=== PATIENT | female | born 1980 | race Two or more races ===

== ENCOUNTER 2018-09-20 08:19 | Outpatient (CLI) | payer OTHER ==
[2018-09-20 08:50] LABS: BASOPHILS % (AUTO) 0.6 %; EOSINOPHILS # (AUTO) 0.1 10^3/uL (0.0-0.7); EOSINOPHILS % (AUTO) 1.8 %; HGB - HEMOGLOBIN 9.3 g/dL (12.0-16.0); LYMPHOCYTES # (AUTO) 1.4 10^3/uL (1.5-3.5); LYMPHOCYTES % (AUTO) 26.5 %; MEAN CORPUSCULAR HGB CONC 28.9 g/dL (32.0-36.0); MEAN CORPUSCULAR VOLUME 79.5 fL (81.0-99.0); MEAN PLATELET VOLUME 10.4 fL (7.9-10.8); MONOCYTES # (AUTO) 0.4 10^3/uL (0.0-1.0); MONOCYTES % (AUTO) 7.7 %; NEUTROPHILS # (AUTO) 3.4 10^3/uL (1.5-6.6); NEUTROPHILS % (AUTO) 63.2 %; PLT - PLATELET COUNT 192 10^3/uL (130-450); RED BLOOD COUNT 4.05 10^6/uL (4.20-5.40); RED CELL DISTRIBUTION WIDTH 15.9 % (12.0-15.0); WHITE BLOOD COUNT 5.4 x10^3/uL (4.8-10.8)
[2018-09-20 09:01] LABS: CALCIUM 8.9 mg/dL (8.5-10.3); CREATININE 0.9 mg/dL (0.4-1.0)
[2018-09-20 09:27] LABS: HCG UR QUAL NEGATIVE
== END 2018-09-20 08:20 | disposition home or self-care (01) ==
LOC: LAB 08:19
PROVIDERS: ATTEND Obstetrics & Gynecology
DX: Z01.812 Encounter for preprocedural laboratory examination (principal); D25.9 Leiomyoma of uterus, unspecified
CPT/HCPCS: 36415; 80048; 81025; 85025; 86850; 86900; 86901

== ENCOUNTER 2018-09-23 06:01 | Inpatient (IN) | payer OTHER ==
[2018-09-23] MEDS ORDERED: CEFAZOLIN SODIUM IN 0.9 % NACL 2 GM/100 ML BAG IV ONE ×2 (06:37→09:00)
--- NOTE | 2018-09-23 07:06 | ANESTHESIA ---
Pre-Anesthesia VS, & Labs - Diagnosis uterine fibroids - Procedure uterine myomectomy Vital Signs: Temp Pulse Resp BP Pulse Ox 36.4 C L 91 16 141/86 H 100 09/23/18 06:45 09/23/18 06:45 09/23/18 06:45 09/23/18 06:45 09/23/18 06:45 Height 5 ft 6 in Weight (kg) 69.3 kg - NPO >8 hours - Is Patient ?: No - Lab Results Lab results reviewed: Yes Home Medications and Allergies Home Medications: Ambulatory Orders No Known Home Medications 09/16/18 No Known Home Medications 09/16/18 Allergies/Adverse Reactions: Allergies Allergy/AdvReac Type Severity Reaction Status Date / Time pine needle Allergy Rash Uncoded 09/16/18 14:38 Anes History & Medical History - Anesthetic History Anesthesia Complications: reports: No previous complications Family history of Anesthesia Complications: Denies Family history of Malignant Hyperthermia: Denies - Medical History Cardiovascular: reports: None Pulmonary: reports: None Gastrointestinal: reports: None Urinary: reports: Other Musculoskeletal: reports: None Endocrine/Autoimmune: reports: None Skin: reports: None Exam General: Alert, Oriented x3, Cooperative, No acute distress Dental: WNL Mouth Openin Fingerbreadth Neck Mobility: Normal Mallampati classification: III Thyromental Distance: greater than 6 cm Respiratory: Lungs clear, Normal breath sounds, No respiratory distress, No accessory muscle use Cardiovascular: Regular rate, Normal S1, Normal S2, No murmurs Plan Anesthesia Type: General Consent for Procedure(s) Verified and Reviewed: No Code Status: Attempt Resuscitation ASA classification: 1-Healthy patient Is this case an emergency?: No
[2018-09-23] MEDS ORDERED: LACTATED RINGERS 1,000 ML IV ONE ×3 (07:07→11:10)
[2018-09-23] MEDS ORDERED: BUPIVACAINE 0.25%-EPI 1:200000 PF 30 ML VIAL ONE (07:24)
[2018-09-23] MEDS ORDERED: LIDOCAINE MPF 1%-EPI 1:200000 30 ML VIAL ONE (07:32)
[2018-09-23] MEDS ORDERED: SCOPOLAMINE PATCH TOP ONE (07:38)
[2018-09-23 08:01] LABS: HCG,QUALITATIVE BLOOD NEGATIVE
[2018-09-23] MEDS ORDERED: LIDOCAINE-MPF 2% 5 ML VIAL IM ONE (09:00)
[2018-09-23] MEDS ORDERED: DEXAMETHASONE 4 MG/ML VIAL IVP ONE (09:00)
[2018-09-23] MEDS ORDERED: ROCURONIUM 50 MG/5 ML VIAL IVP ONE (09:00)
[2018-09-23] MEDS ORDERED: ePHEDrine 50 MG/ML VIAL IVP ONE (09:00)
[2018-09-23] MEDS ORDERED: PROPOFOL 200 MG/20 ML VIAL IVP ONE (09:00)
[2018-09-23] MEDS ORDERED: ACETAMINOPHEN 1,000 MG/100 ML 100 ML IV ONE (09:00)
[2018-09-23] MEDS ORDERED: KETOROLAC 60 MG/2 ML VIAL IM ONE (09:00)
[2018-09-23] MEDS ORDERED: SUGAMMADEX 200 MG/2 ML VIAL IVP ONE ×2 (09:00→10:27)
[2018-09-23] MEDS ORDERED: ONDANSETRON 4 MG/2 ML VIAL IVP ONE (09:00)
[2018-09-23] MEDS ORDERED: fentaNYL 250 MCG/5 ML VIAL IVP ONE (09:00)
[2018-09-23] MEDS ORDERED: ONDANSETRON 4 MG/2 ML VIAL IVP PRN (10:50)
[2018-09-23] MEDS ORDERED: MORPHINE 10 MG/ML VIAL IVP PRN (10:50)
[2018-09-23] MEDS ORDERED: SIMETHICONE CHEW 80 MG TABLET PO PRN (10:50)
[2018-09-23] MEDS ORDERED: ACETAMINOPHEN 500 MG TABLET PO PRN (10:51)
--- NOTE | 2018-09-23 10:55 | OPERATIVE REPORT ---
Operative Report - General Admit Date: 09/23/18 Planned Procedure: Abdominal myomectomy Pre-Op Diagnosis: Uterine fibroids Procedure Performed: Abdominal myomectomy, fulguration of endometriosis Post Op Diagnosis: Uterine fibroids, endometriosis - Procedure Note Primary Surgeon: Dr. Merced Lund Secondary Surgeon: Dr. Adin Salazar Anesthesia Provider: Dr. Jasiel Blackmon Anesthesia Technique: General ET tube Pathology: Uterine fibroids IV Fluids (mL): 1,500 Estimated Blood Loss (mL): 700 Urine Output (mL): 75 Indications: The patient is a 37-year-old 0 female with painful, heavy menses and pelvic ultrasound showing multiple uterine fibroids, the largest measuring 6 to 7 cm. The management options for fibroids were discussed with the patient, and she desired surgical management in the form of a myomectomy. The risks, benefits, limitations, alternatives, and expectations of surgery were discussed. The consent was then reviewed and signed prior to the date of surgery. Findings: Exam under anesthesia: Uterus anteverted and enlarged to approximately 14 weeks size. A large dominant fibroid was palpable at the posterior left region of the uterus. Operative findings: The cervix was normal appearance. The uterus was enlarged with multiple fibroids, 12 of which were removed at the time of surgery. The largest measured approximately 7 cm in diameter and was positioned at the posterior left portion of the uterus. It was predominantly intramural. There were 3 other fundal intramural fibroids noted, measuring approximately 3 cm each, at the midline fundus and then one anterior and one posterior at the right fundus. Multiple other smaller fibroids were removed from the incisions. Smaller subserosal fibroids measured less than 1 cm and were left in situ. Powder burn endometriosis lesions were noted at the left utero-ovarian pedicle in the posterior right uterine serosa. These were fulgurated at the time of surgery. The ovaries and fallopian tubes were normal in appearance. All areas of dissection avoided the cornual regions of the tubes. The myomectomies were performed through two incisions - one vertical incision at the posterior left, just to the left of midline, measuring 10 cm in length; and one across the fundus (anterior-posterior) at the midline and measuring 10 cm in length. Complications: None - Other Other Information/Narrative: The patient was taken to the operating room, where general endotracheal anesthesia was administered without difficulty. She was then positioned in the low dorsal lithotomy position with her lower extremities in Yellow [place] stirrups. Exam under anesthesia was then performed with the findings as noted above. Vagina, perineum, and abdomen were then prepped and draped in a sterile fashion, and a hooper catheter was placed. Procedure Time-Out was then performed. A sterile bivalve speculum was then inserted into the vagina. A tenaculum was placed at the anterior lip of the cervix, then the cervix was serially dilated until a HUMI uterine manipulator could be gently advanced and the balloon inflated. The tenaculum and speculum were then removed from the vagina. A Pfannenstiel incision was made two fingerbreadths above the pubic symphysis, measuring 7-8 cm in length. Dissecting through the layers of the abdominal wall sharply with Bovie cautery, the rectus fascia was visualized then nicked at the midline with the Bovie. This incision was then extended bilaterally using B ovie. Any bleeding was controlled with cautery. The superior aspect of the rectus fascia was then grasped at the midline with 2 Estela clamps and tented up. The rectus muscle was then dissected off the rectus fascia using a combination of blunt and cautery dissection. This step was then performed at the inferior aspect of the rectus fascia. The rectus muscles were then at the midline using a push and spread technique with Em clamps. The peritoneum was then visualized and entered sharply using Metzenbaum scissors. This incision was then extended superiorly and inferiorly, taking care to avoid any injury to the bladder. The uterus was palpated, and attempted to deliver to the incision; however, the dominant fibroid was too large. The skin incision was extended to 10-12 cm, allowing the uterus to be exteriorized onto the abdomen. The uterine manipulator was able to aid in this step. The uterus was notable for multiple fibroids as above. Attention was first turned to removal of the dominant fibroid at the posterior left side of the uterus. Here, 1% lidocaine with epinephrine was injected subserosally. An incision was then made with Bovie cautery over the length of the uterine fibroid. The myometrium was then further dissected with the cautery until the fibroid was reached. The fibroid was then grasped with a penetrating towel clamp while the surrounding myometrial tissue was bluntly dissected off of the fibroid. The fibroid was then removed from the myometrium. It did not appear to penetrate into the endometrium. The deep myometrial tissue was then closed with 0 chromic in layers to achieve hemostasis. At the outer aspect of the myometrium 2-0 chromic was utilized to reapproximate the edges in a horizontal mattress fashion. The uterine serosa was then closed with a 3-0 chromic using a baseball stitch. Hemostasis appeared to have been achieved. Attention was then turned to the fundal aspect of the uterus for removal of 3 other 3 cm fibroids that were intramural and partially subserosal. Here, a 7 cm anterior to posterior incision was planned, bisecting the midline and avoiding the tubal ostia. 1% lidocaine with epinephrine was injected under the serosa. Then, the incision was made with a Bovie cautery. The middle left fundal fibroid was palpated through the myometrium, and the myometrium cauterized until the fibroid was reached and grasped with a penetrating towel clamp. With gentle traction the fibroid was removed while dissecting the myometrium off with blunt and cautery dissection. The posterior right fundal fibroid was palpable through the incision. Overlaying myometrium was dissected until the fibroid was reached. The fibroid was grasped with a penetrating towel clamp and with gentle traction applied removed from the surrounding myometrium. A few smaller fibroids were removed during this process as well. Attention was finally turned to the right anterior fundal fibroid, which was a bit anterior to the incision. The incision was then extended anteriorly b approximately 3 cm to allow dissection of the right fundal fibroid. Additional lidocaine was injected into the serosa first. Then the incision was extended using Bovie cautery. The surrounding myometrium was then cauterized and until the fibroid could be reached and grasped with a penetrating towel clamp. The fibroid was then removed with gentle traction and Bovie cautery. The deeper tissue layers of the myometrium were closed with a combination of pursestring sutures and [id number] sutures using 0 chromic to achieve hemostasis. The entire incision was then closed in layers with 0 chromic again to achieve hemostasis and reapproximation. The serosa was then closed with 3-0 chromic in a baseball stitch. Some residual bleeding at the middle aspect was controlled with a [id number] suture of 2-0 chromic. Some notable areas of endometriosis were cauterized with Bovie cautery during the dissection. Once the incisions appeared hemostatic the cul-de-sac was irrigated. Blood loss was determined based on suction canister contents as well as weight of lap sponges. Blood loss was approximately 700 mL for the case. Seprafilm was placed over both incisions then the uterus was carefully returned to the pelvis. The rectus muscle bellies and peritoneum were then reapproximated at the midline using a running, nonlocked suture of 0 Vicryl. Any residual bleeding was controlled with Bovie cautery. Lidocaine 1% with epinephrine was injected into the fascia for pain control, then the rectus fascia was closed with a running nonlocked suture of 0 Vicryl. The subcutaneous tissue was then copiously irrigated and reapproximated with 2-0 Vicryl in interrupted sutures. The skin was then closed with 4-0 Monocryl in a subcuticular fashion. Mastisol and steri-strips were applied, followed by a dressing. At this point, the procedure was deemed complete. The patient was then transferred to recovery in stable fashion. There were no complications. Sponge lap and needle count were correct x3.
[2018-09-23] MEDS: LACTATED RINGERS 1,000 ML IV SCH ×2 (11:51→21:22)
[2018-09-23] MEDS: KETOROLAC 30 MG/ML VIAL IVP SCH ×2 (12:19→19:08)
[2018-09-23] MEDS ORDERED: SODIUM CHLORIDE FLUSH 0.9% 10 ML SYRINGE ONE (12:25)
[2018-09-23] MEDS: SODIUM CHLORIDE FLUSH 0.9% 10 ML SYRINGE IVP SCH ×3 (12:56→17:20)
[2018-09-23] MEDS: oxyCODONE 5 MG TABLET PO PRN (15:04)
[2018-09-23] MEDS: DOCUSATE SODIUM 100 MG CAPSULE PO SCH ×2 (15:04→21:20)
[2018-09-23] MEDS ORDERED: METOCLOPRAMIDE 10 MG/2 ML VIAL IVP PRN (16:52)
[2018-09-24] MEDS: oxyCODONE 5 MG TABLET PO PRN ×2 (03:10→14:11)
[2018-09-24] MEDS: SODIUM CHLORIDE FLUSH 0.9% 10 ML SYRINGE IVP SCH ×2 (04:08→12:12)
[2018-09-24 05:09] LABS: BASOPHILS % (AUTO) 0.2 %; EOSINOPHILS % (AUTO) 0.3 %; LYMPHOCYTES # (AUTO) 1.6 10^3/uL (1.5-3.5); LYMPHOCYTES % (AUTO) 13.6 %; MEAN CORPUSCULAR HEMOGLOBIN 23.6 pg (27.0-31.0); MEAN CORPUSCULAR HGB CONC 29.8 g/dL (32.0-36.0); MEAN CORPUSCULAR VOLUME 79.3 fL (81.0-99.0); MEAN PLATELET VOLUME 10.8 fL (7.9-10.8); MONOCYTES # (AUTO) 1.1 10^3/uL (0.0-1.0); MONOCYTES % (AUTO) 9.9 %; NEUTROPHILS # (AUTO) 8.8 10^3/uL (1.5-6.6); NEUTROPHILS % (AUTO) 75.7 %; PLT - PLATELET COUNT 142 10^3/uL (130-450); RED BLOOD COUNT 2.71 10^6/uL (4.20-5.40); RED CELL DISTRIBUTION WIDTH 16.5 % (12.0-15.0); WHITE BLOOD COUNT 11.6 x10^3/uL (4.8-10.8)
[2018-09-24 05:17] LABS: HGB - HEMOGLOBIN 6.4 g/dL (12.0-16.0)
[2018-09-24] MEDS: KETOROLAC 30 MG/ML VIAL IVP SCH ×2 (05:56)
[2018-09-24 06:04] LABS: BASOPHILS % (AUTO) 0.2 %; EOSINOPHILS % (AUTO) 0.1 %; LYMPHOCYTES # (AUTO) 1.5 10^3/uL (1.5-3.5); LYMPHOCYTES % (AUTO) 13.4 %; MEAN CORPUSCULAR HEMOGLOBIN 22.9 pg (27.0-31.0); MEAN CORPUSCULAR HGB CONC 29.1 g/dL (32.0-36.0); MEAN CORPUSCULAR VOLUME 78.6 fL (81.0-99.0); MEAN PLATELET VOLUME 10.2 fL (7.9-10.8); MONOCYTES # (AUTO) 1.1 10^3/uL (0.0-1.0); MONOCYTES % (AUTO) 9.4 %; NEUTROPHILS # (AUTO) 8.6 10^3/uL (1.5-6.6); NEUTROPHILS % (AUTO) 76.5 %; PLT - PLATELET COUNT 149 10^3/uL (130-450); RED CELL DISTRIBUTION WIDTH 16.3 % (12.0-15.0); WHITE BLOOD COUNT 11.2 x10^3/uL (4.8-10.8)
[2018-09-24 06:09] LABS: HGB - HEMOGLOBIN 6.4 g/dL (12.0-16.0)
[2018-09-24] MEDS: LACTATED RINGERS 1,000 ML IV SCH (07:03)
[2018-09-24] MEDS: DOCUSATE SODIUM 100 MG CAPSULE PO SCH (08:22)
[2018-09-24 13:28] LABS: MEAN CORPUSCULAR HEMOGLOBIN 23.1 pg (27.0-31.0); MEAN CORPUSCULAR HGB CONC 28.9 g/dL (32.0-36.0); MEAN CORPUSCULAR VOLUME 79.7 fL (81.0-99.0); MEAN PLATELET VOLUME 11.2 fL (7.9-10.8); RED BLOOD COUNT 2.86 10^6/uL (4.20-5.40); RED CELL DISTRIBUTION WIDTH 16.4 % (12.0-15.0); WHITE BLOOD COUNT 11.3 x10^3/uL (4.8-10.8)
[2018-09-24 13:36] LABS: HGB - HEMOGLOBIN 6.6 g/dL (12.0-16.0)
--- NOTE | 2018-09-24 16:16 | DISCHARGE SUMMARY ---
"Discharge Summary Admit Date: 09/23/18 Discharge Date: 09/24/18 Discharging Provider: Dr. Merced Lund Code Status: Attempt Resuscitation Condition at Discharge: Good Discharge Disposition: 01 Home, Self Care - DIAGNOSES Admission Diagnoses: Symptomatic Fibroid Uterus Discharge Diagnoses with Status of Each Condition: 1. Symptomatic Fibroid Uterus now s/p abdominal myomectomy 2. Endometriosis 3. Anemia, due to intraoperative blood loss - HPI History of Present Illness: Please see admission H&P - CONSULTS | PROCEDURES Consultations: None Procedures: Abdominal Myomectomy, Fulguration of Endometriosis - HOSPITAL COURSE Hospital Course: The patient underwent an abdominal myomectomy and fulguration of endometriosis for management of heavy and painful menses. Intraoperative course was notable f or heavy blood loss from the fibroid dissection. EBL for surgery was 700 ml based on suction and weighing of lap sponges, while accounting for moisture within the lap sponges. The night of surgery, she had some nausea and vomiting that was well-managed with Zofran and Reglan. Pain was managed with Toradol, tylenol, and oxycodone. She also had a fascial lidocaine injection at the time of abdominal closure. On the morning of POD #1, her H/H was notably low at 6/22. Repeat confirmed this, and she was type and cross-matched 2 units in case of need for blood transfusion. She denied lightheadedness or dizziness at rest or with ambulation. She did note fatigue with exercise, however. Vital signs were normal, and pain was appropriate for postop. A repeat CBC 6 hrs later noted stable H/H. Abdominal exam and history were not suggestive of any ongoing, intra-peritoneal blood loss. The patient was counseled regarding anemia and pros/cons of blood transfusion. She declined blood transfusion unless absolutely necessary. She was otherwise meeting criteria for discharge, including ambulating, tolerating a regular diet, voiding, passing flatus, and controlling pain with oral pain meds. She desired discharge to home on POD #1 to allow better rest at home. - ALLERGIES Allergies/Adverse Reactions: Allergies Allergy/AdvReac Type Severity Reaction Status Date / Time pine nut Allergy Intermediate Rash Verified 09/23/18 11:32 - MEDICATIONS Home Medications: Ambulatory Orders Medication Instructions Recorded Confirmed No Known Home Medications 09/16/18 09/16/18 - PHYSICAL EXAM AT DISCHARGE General Appearance: positive: No acute distress Eyes Bilateral: positive: Other (Mildly pale conjunctivae) Neck: positive: Nml inspection Respiratory: positive: Chest non-tender, No respiratory distress, Breath sounds nml Cardiovascular: positive: Regular rate & rhythm, No murmur, No gallop Peripheral Pulses: positive: 2+ Abdomen: positive: Other (Mildly distended. Mild tenderness to palpation at and below the umbilicus. Mild guarding. Bowel sounds present.) Skin: positive: Pallor Extremities: positive: Non-tender, Nml appearance Neurologic/Psychiatric: positive: Oriented x3, Sensation nml, Mood/affect nml - LABS Result Diagrams: 09/24/18 13:15 - QUALITY (Female Hip Fx Only) Was patient sent home on osteoporosis medication?: No - FOLLOW UP Follow Up: [id number] with Dr. Lund as previously scheduled - TIME SPENT Time Spent in Discharge (Minutes): 20"
--- NOTE | 2018-09-24 16:27 | Discharge Plan ---
Discharge Plan Problem Reviewed?: Yes Disposition: Home, Self Care Condition: Good Diet: Regular Activity Restrictions: Light activity for 4 wks Shower Restrictions: Yes (Do not scrub over incision) Driving Restrictions: Yes (OK to drive once pain-free off narcotic pain meds) Weight Bearing: Full Weight Health Concerns: Anemia - start iron replacement at approximately 1 week postop Endometriosis - will discuss start of hormonal BC at postop visit Plan of Treatment: D/c to home Care Goals: Correction of anemia, management of menses/endometriosis Assessment: POD #1 s/p abdominal myomectomy and fulguration of endometriosis; anemia secondary to intraoperative blood loss - mildly symptomatic. No Smoking: If you smoke, Please STOP! Call for help.
[2018-09-24 16:57] VITALS: BP 115/68
== END 2018-09-24 18:15 | disposition home or self-care (01) | DRG 742 ==
LOC: MS2 06:01
PROVIDERS: ADMIT Obstetrics & Gynecology; ATTEND Obstetrics & Gynecology
PROC: 0UB90ZZ Excision of Uterus, Open Approach (ICD-10-PCS; principal; 2018-09-23 07:30)
DX: D25.1 Intramural leiomyoma of uterus (principal); D62 Acute posthemorrhagic anemia; D25.2 Subserosal leiomyoma of uterus; N92.0 Excessive and frequent menstruation with regular cycle; N94.6 Dysmenorrhea, unspecified; N80.3 Endometriosis of pelvic peritoneum
CPT/HCPCS: 36415; 84703; 85025; 85027; 86850; 86900; 86901; 86920; A9270; J0131; J0690; J2765; J3010; J3490; J7120; 81025

== ENCOUNTER 2020-05-14 12:58 | Outpatient (CLI) | payer OTHER ==
--- NOTE | 2020-05-17 12:55 | Mammography Report ---
BILATERAL DIGITAL SCREENING MAMMOGRAM 3D/2D: 05/14/2020 CLINICAL: Baseline exam. No prior exams were available for comparison. The tissue of both breasts is heterogeneously dense. T his may lower the sensitivity of mammography. There is a 1.6 cm oval equal density mass with a circumscribed margin in the right breast central to the nipple anterior depth. There is a 0.6 cm oval mass in the left breast at 8 o'clock anterior depth. Finding is best seen on tomography. No other significant masses or calcifications are seen in either breast. IMPRESSION: INCOMPLETE: NEEDS ADDITIONAL IMAGING EVALUATION The 1.6 cm oval equal density mass in the right breast central to the nipple anterior depth is indete rminate. The 0.6 cm oval mass in the left breast at 8 o'clock anterior depth is indeterminate. Additional views with possible ultrasound are recommended. This exam was interpreted at Station ID: [id number]. NOTE: For mammograms, a report in lay terms will be sent to the patient. Approximately 15% of breast malignancies will not be visualized mammographically. In the management of a palpable breast mass, a negative mammogram must not discourage biopsy of a clinically suspicious lesion. Electronically Signed By: Emir Hernández M.D. slc/:05/14/2020 17:35:22 ACR BI-RADS Category 0: Incomplete [id number] PARENCHYMAL PATTERN: (D) - The breast(s) demonstrate(s) heterogeneously dense fibroglandular parmonicay stephani. BI-RADS CATEGORY: (0) - 0 Mammo and [place] [id number] Immediate follow-up LATERALITY: (B)
== END 2020-05-14 12:59 | disposition home or self-care (01) ==
LOC: DI 12:58
PROVIDERS: ATTEND Family Medicine
DX: Z12.31 Encounter for screening mammogram for malignant neoplasm of breast (principal); R92.8 Other abnormal and inconclusive findings on diagnostic imaging of breast

== ENCOUNTER 2020-12-07 21:16 | Emergency (ER) | payer OTHER ==
--- NOTE | 2020-12-07 23:56 | ED Physician Documentation ---
PD HPI SKIN - Stated complaint Stated Complaint: RASH ON UPPER BODY - Chief complaint Chief Complaint: Allergic Rx - History obtained from History obtained from: Patient - History of Present Illness Timing - onset: Today Timing - duration: Hours (12) Timing - details: Gradual onset (awoke with some hives on back of neck and arms, which has spread to whole body through the day. Itchy. No noted swelling of lips nor tongue. Not lightheaded. No noted obvious trigger to start it. 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 : Other HEENT: None Psych: None Musculoskeletal: None Derm: None - Past Surgical History Past Surgical History: Yes - Present Medications Home Medications: Ambulatory Orders Medication Instructions Recorded Confirmed Cetirizine [ZyrTEC] 10 mg PO BID 7 Days #14 tablet 12/08/20 dexAMETHasone [Decadron] 4 mg PO DAILY #5 tablet 12/08/20 diphenhydrAMINE [Benadryl] 25 mg PO Q4-6H PRN #20 12/08/20 - Allergies Allergies/Adverse Reactions: Allergies Allergy/AdvReac Type Severity Reaction Status Date / Time pine nut Allergy Intermediate Rash Verified 12/07/20 21:19 - Social History Does the pt smoke?: No Smoking Status: Never smoker Does the pt have substance abuse?: No - Immunizations Immunizations are current?: Yes Results - Vitals Vitals: Oxygen O2 Source Room air PD MEDICAL DECISION MAKING - ED course Complexity details: considered differential (hives, but without identified trigger. Will treat with steroid/antihistamines. ), d/w patient Departure - Departure Disposition: 01 Home, Self Care Clinical Impression: Acute urticaria Condition: Stable Record reviewed to determine appropriate education?: Yes Instructions: ED Allergic Reaction General Other Follow-Up: AUSTIN DOW DO [Primary Care Provider] - Prescriptions: diphenhydrAMINE [Benadryl] 25 mg PO Q4-6H PRN #20 PRN Reason: Itching dexAMETHasone [Decadron] 4 mg PO DAILY #5 tablet Cetirizine [ZyrTEC] 10 mg PO BID 7 Days #14 tablet Comments: Use the steroid dexamethasone daily for 5 more days. Also cetirizine antihistamine twice daily for the next week. This tries to outlast whatever is causing the reaction and to end the reaction. Add diphenhydramine (Benadryl) every 6 hours if needed in the short-term for itchiness and hives. I would anticipate improvement over the next 2 to 3 days and resolution in that timeframe. Recheck if not better in that timeframe or if recurrent in the near future as this may suggest a need for other allergy testing or such. One consideration would be the naproxen you would used sort of recently. Do not use that for now and you could try it again in 2 weeks or so after your current hives are resolved. Try to just a couple of times and see if the itchiness recurs. If not, then I would say that that was on related. Discharge Date/Time: 12/08/20 00:47
[2020-12-08] MEDS ORDERED: CETIRIZINE 10 MG TABLET PO STA (00:07)
[2020-12-08] MEDS ORDERED: DEXAMETHASONE 10 MG/ML VIAL PO STA (00:07)
[2020-12-08] MEDS ORDERED: FAMOTIDINE 20 MG TABLET PO STA (00:07)
[2020-12-08] MEDS ORDERED: diphenhydrAMINE 25 MG CAPSULE PO STA (00:07)
[2020-12-08] MEDS ORDERED: CHERRY SYRUP 10 ML UDC PO ONE (00:07)
[2020-12-08 00:34] VITALS: BP 145/81
== END 2020-12-08 00:47 | disposition home or self-care (01) ==
LOC: ED 21:16
DX: L50.9 Urticaria, unspecified (principal)
CPT/HCPCS: 99282; 99283; A9270

== ENCOUNTER 2021-01-01 04:37 | Emergency (ER) | payer OTHER ==
--- NOTE | 2021-01-01 05:47 | ED Physician Documentation ---
History of Present Illness - Stated complaint Stated Complaint: ALERGIC REACTION, TOP LIP SWELLING - Chief complaint Chief Complaint: Allergic Rx - History obtained from History obtained from: Patient - History of Present Illness Timing: How many weeks ago Pain level max: 0 Pain level now: 0 Improved by: steroids (previous episode, see narrative below) Worsened by: no apparent inciting nor exacerbating factors - Additonal information Additional information: patient was T+R from this ED a few weeks ago for hives, had resolution with benadryl and short course of PO steroids. She has had intermittent, generalized hives since she finished the steroids , no apparent trigger. Today she developed upper lip swelling, which she has not had before. denies dyspnea, chest tightness. 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 : Other HEENT: None Psych: None Musculoskeletal: None Derm: None - Past Surgical History Past Surgical History: No - Present Medications Home Medications: Ambulatory Orders Medication Instructions Recorded Confirmed Cetirizine [ZyrTEC] 10 mg PO BID 7 Days #14 tablet 12/08/20 dexAMETHasone [Decadron] 4 mg PO DAILY #5 tablet 12/08/20 diphenhydrAMINE [Benadryl] 25 mg PO Q4-6H PRN #20 12/08/20 Cetirizine [ZyrTEC] 10 mg PO BID #10 tablet 01/01/21 EPINEPHrine [Epinephrine] 0.3 mg IJ ONCE PRN #2 syr 01/01/21 predniSONE [Deltasone] 40 mg PO DAILY 5 Days #10 tablet 01/01/21 - Allergies Allergies/Adverse Reactions: Allergies Allergy/AdvReac Type Severity Reaction Status Date / Time pine nut Allergy Intermediate Rash Verified 01/01/21 04:42 - Social History Does the pt smoke?: No Smoking Status: Never smoker Does the pt drink ETOH?: No Does the pt have substance abuse?: No - Immunizations Immunizations are current?: Yes PD ED PE NORMAL - Vitals Vital signs reviewed: Yes - HEENT HEENT: Moist mucous membranes, Pharynx benign, Other (moderate uniform edema of upper lip. No other perioral edema including lower lip and no intraoral edema) - Neck Neck: Supple, no meningeal sign - Respiratory Respiratory: No respiratory distress, Clear bilaterally - Derm Derm: Other (scattered hives proximal BUE/BLE) Results - Vitals Vitals: Oxygen O2 Source Room air PD MEDICAL DECISION MAKING - ED course Complexity details: considered differential, d/w patient ED course: given IV benadryl, decadron, and IM epinephrine. Observed for over 3 hours in ED, on serial exams she has mild improvement, no worsening of lip swelling. Departure - Departure Disposition: 01 Home, Self Care Clinical Impression: Angioedema Qualifiers: Encounter type: initial encounter Qualified Code(s): T78.3XXA - Angioneurotic edema, initial encounter Condition: Good Instructions: ED Angioedema Follow-Up: AUSTIN DOW DO [Primary Care Provider] - Prescriptions: predniSONE [Deltasone] 40 mg PO DAILY 5 Days #10 tablet EPINEPHrine [Epinephrine] 0.3 mg IJ ONCE PRN #2 syr PRN Reason: Anaphylaxis Cetirizine [ZyrTEC] 10 mg PO BID #10 tablet Comments: Prescriptions for prednisone (steroid), cetirizine (antihistamine), and epi-pen have been electronically submitted to [facility] pharmacy in [place] Discharge Date/Time: 01/01/21 08:46
[2021-01-01] MEDS ORDERED: EPINEPHrine 1 MG/ML AMP IM STA (06:00)
[2021-01-01] MEDS ORDERED: diphenhydrAMINE INJ 50 MG/ML VIAL IVP STA (06:00)
[2021-01-01] MEDS ORDERED: DEXAMETHASONE 10 MG/ML VIAL IVP STA (06:00)
[2021-01-01] MEDS ORDERED: FAMOTIDINE 20 MG/2 ML VIAL IVP STA (07:11)
[2021-01-01 08:46] VITALS: BP 136/82
== END 2021-01-01 08:46 | disposition home or self-care (01) ==
LOC: ED 04:37
DX: T78.3XXA Angioneurotic edema, initial encounter (principal); X58.XXXA Exposure to other specified factors, initial encounter
CPT/HCPCS: 96372; 96374; 96375; 99283; 99284; J1200